=== PATIENT | male | born 1980 | race Caucasian/White ===

== ENCOUNTER 2018-11-02 23:40 | Emergency (ER) | payer MEDICAID ==
[~2018-11-02] VITALS: Ht 182.9 cm; Wt 48.0 kg
[~2018-11-02 23:40] MED LIST: NO HOME MEDS
[2018-11-02 23:50] VITALS: BP 140/92
[2018-11-03 02:56] LABS: ALBUMIN 3.6 G/DL (3.4-5.0); ANION GAP 4 (8-16); BLOOD UREA NITROGEN 6 MG/DL (7-18); BUN/CREATININE RATIO 6.7 (5.4-32.0); CALCIUM 8.6 MG/DL (8.5-10.1); CHLORIDE 106 MMOL/L (99-107); CREATININE 0.89 MG/DL (0.60-1.10); GLUCOSE 92 MG/DL (70-104); POTASSIUM 3.7 MMOL/L (3.5-5.1); SODIUM 139 MMOL/L (135-145); TOTAL CARBON DIOXIDE 29.4 MMOL/L (24-32); eGFR > 90 ML/MIN
== END 2018-11-03 03:21 | disposition home or self-care (01) ==
LOC: ER 23:40
DX: M79.651 Pain in right thigh (principal); M79.652 Pain in left thigh
CPT/HCPCS: 36415; 80048; 99283